=== PATIENT | female | born 1995 | race Caucasian/White ===

== ENCOUNTER → 2017-11-14 | Outpatient (CLI) | payer OTHER ==
[~2017-11-14] MED LIST: LEVO75TA5 PO
== END | disposition home or self-care (01) ==
LOC: C.PAPS 10:03
PROVIDERS: ATTEND Obstetrics & Gynecology
DX: Z01.419 Encounter for gynecological examination (general) (routine) without abnormal findings (principal)

== ENCOUNTER 2020-02-08 03:53 | Inpatient (IN) ==
[2020-02-08] MEDS ORDERED: OXYTOCIN 30 UNITS/500 ML BAG IV PRN ×2 (04:40→04:41)
[2020-02-08] MEDS ORDERED: LACTATED RINGER'S 1,000 ML IV PRN (04:40)
[2020-02-08] MEDS ORDERED: IBUPROFEN 600 MG TAB PO PRN (04:41)
[2020-02-08] MEDS ORDERED: SUPERCREAM 0.870% 15 GM JAR EXT PRN (04:41)
[2020-02-08] MEDS ORDERED: HYDROCORTISONE ACETATE 25 MG SUPP PR PRN (04:41)
[2020-02-08] MEDS ORDERED: ACETAMINOPHEN 325 MG TAB PO PRN (04:41)
[2020-02-08] MEDS ORDERED: DIPHTHERIA/TETANUS/PERTUSSIS 0.5 ML SYR/VIAL IM ONE (04:41)
[2020-02-08] MEDS ORDERED: OXYCODONE/ACETAMINOPHEN 5mg/325mg TAB PO PRN (04:41)
[2020-02-08] MEDS ORDERED: BENZOCAINE 20% AER SPR 82.5 GM CAN EXT PRN (04:41)
[2020-02-08] MEDS ORDERED: bisacodyL 10 MG SUPP PR PRN (04:41)
[2020-02-08 05:00] LABS: Hematocrit (blood only) 38.1 % (37-47); Hemoglobin 12.6 g/dL (12.0-16.0); Mean Corpuscular Hemoglobin 29.5 pg (25-34); Mean Corpuscular Volume 89.2 fL (80-100); Mean Platelet Volume 10.6 fL (7.4-10.4); Platelet Count 186 K/uL (130-400); RDW Coefficient of Variation 14.3 % (11.5-14.5); RDW Standard Deviation 46.5 fL (36.4-46.3); Red Blood Count 4.27 M/uL (4.2-5.4); White Blood Count 11.99 K/uL (4.8-10.8)
[2020-02-08 05:01] LABS: Mean Corpuscular Hgb Conc 33.1 g/dL (32-36)
[2020-02-08] MEDS: LEVOTHYROXINE SODIUM 100 MCG TABLET PO SCH (06:51)
--- NOTE | 2020-02-08 07:45 | Delivery Summary ---
DATE OF OPERATION: 02/08/2020 The patient is a 24-year-old 3, para 1-0-1-1 white female who presented at 40+ weeks in active labor. She arrived at 9 cm dilated with bulging membranes. Membranes were ruptured for clear fluid. After 2 contractions, she was fully dilated and had the urge to push. She pushed effectively over intact perineum for a viable male . After the head was delivered, the rest of the infant delivered easily and was placed on the mother's abdomen for further attention and drying. Cord was clamped and cut after approximately 20 seconds as the infant was not having strong respiratory effort and was placed on the baby bed. At this point, the baby began to have vigorous crying and was moving all 4 limbs. The placenta was expressed intact with a 3-vessel cord. A second degree perineal laceration was repaired with 3-0 chromic in the usual fashion. Estimated blood loss was 250 mL. Mother and were doing well after delivery. bleeding was controlled with dilute Pitocin. I attest to the content of the Intraoperative Record and any orders documented therein. Any exception s are noted below.
[2020-02-08] MEDS: DOCUSATE SODIUM 100 MG CAP PO SCH ×2 (07:50→20:39)
[2020-02-08] MEDS: PRENATAL VITAMIN 1 TAB PO SCH (07:50)
[2020-02-08] MEDS: VALACYCLOVIR HCL 500 MG TABLET PO SCH (20:39)
[2020-02-09] MEDS: LEVOTHYROXINE SODIUM 100 MCG TABLET PO SCH (06:42)
--- NOTE | 2020-02-09 06:47 | Obstetrical Progress Note ---
Date of Service February 09, 2020 Assessment & Plan (1) state: Recovering well. . Circ planned today for baby per mom. Likely D/C tomorrow. On valtrex for active shingles as well and will Rx to go home with. Subjective Ambulation: ambulating normally Voiding: no voiding problems Passing Gas:: Yes Diet Tolerance:: regular diet Lochia:: Small Feeding Type:: breast feeding Physical Exam Constitutional WD/WN, vitals as above Eyes PERRL, conjunctivae normal, anicteric sclerae Neck normal visual inspection Respiratory normal respiratory effort and able to speak in complete sentences; no respiratory distress and no labored breathing Cardiovascular Rate/Rhythm: regular rate and regular rhythm Extremities: no edema Chest (Breasts) Chest: normal inspection of chest Gastrointestinal (Abdomen) Inspection/Auscultation: abdomen normal to inspection Soft, postgravid Skin + lesion (Occlusive tegaderm dressing on L ankle where shingles reportedly present) Psychiatric A+Ox3, euthymic affect Genitourinary OB Exam Abdomen: + fundal height Fundus: + firm and + relation to umbilicus (fundus just below umbilicus); not tender Results & Data Vital Signs (Past 12 Hours) Vital Signs Temp Pulse Resp BP 02/09/20 00:30 98.2 F 71 18 108/64 02/08/20 20:30 98.2 F 82 18 109/74
[2020-02-09 07:03] LABS: Hematocrit (blood only) 36.6 % (37-47); Mean Corpuscular Hemoglobin 29.4 pg (25-34); Mean Corpuscular Hgb Conc 32.8 g/dL (32-36); Mean Corpuscular Volume 89.7 fL (80-100); Mean Platelet Volume 11.1 fL (7.4-10.4); Platelet Count 211 K/uL (130-400); RDW Coefficient of Variation 14.4 % (11.5-14.5); RDW Standard Deviation 47.2 fL (36.4-46.3); Red Blood Count 4.08 M/uL (4.2-5.4); White Blood Count 11.02 K/uL (4.8-10.8)
[2020-02-09] MEDS: PRENATAL VITAMIN 1 TAB PO SCH (08:28)
[2020-02-09] MEDS: DOCUSATE SODIUM 100 MG CAP PO SCH (08:28)
[2020-02-09] MEDS: VALACYCLOVIR HCL 500 MG TABLET PO SCH (09:12)
[2020-02-09] MEDS ORDERED: bisacodyL 5 MG TABEC PO SCH (20:00)
== END 2020-02-09 15:00 | disposition home or self-care (01) | DRG 807 ==
LOC: OPB 03:53 → 4S1 03:55 → 4S2 07:12

== ENCOUNTER 2023-01-22 21:50 | Inpatient (IN) ==
[2023-01-22] MEDS ORDERED: OXYTOCIN 30 UNITS/500 ML BAG IV PRN ×2 (22:36→22:41)
[2023-01-22] MEDS ORDERED: PENICILLIN G POTASSIUM 6 MU in DEXTROSE 5% 250 ML IV STA (22:36)
[2023-01-22] MEDS ORDERED: LIDOCAINE 1% LOCAL 20 ML VIAL INFIL PRN (22:36)
[2023-01-22] MEDS ORDERED: BETAMETH SOD PHOS/ACETATE IA 6 MG/ML IM STA (22:36)
--- NOTE | 2023-01-22 22:45 | History & Physical Report ---
Date of Service January 22, 2023 Assessment & Plan (1) premature rupture of membranes: (2) Hypothyroid in , antepartum: (3) PFO (patent foramen ovale): Plan 27 yo at 35 4//7 wga presents w/ pprom VSS Fetus cat 1 PPROM confirmed on SSE. GBS obtained, will start pcn for gbs unknown and betamethasone for GA. Discussed risks vs benefits of betamethasone, likely will deliver before second. Will see if labor starts, plan pit if not. Discussed w/ peds and they are aware Epidural prn History of Present Illness Chief Complaint: LOF Primary Care Provider: NO PCP 27 yo at 35 4/7 wga presented w/ c/o LOF since 840pm. Was sitting on couch and felt a large gush of fluid. She stood up and it continued to leak. +FM, started having light cramping. Denies VB. No recent intercourse, no change in activity PNI: Hypothyroid PFO, echo wnl BMI >35 Past [employer] Hx: G1 2015 at 40 wks G2 2019 SAB G3 2020 at 40 wks G4 current q30d cycles notes HSV on her L ankle, denies ever having cold sores or genital HSV Allergies Allergy/AdvReac Type Severity Reaction Status Date / Time No Known Drug Allergies Allergy nka Verified 01/22/23 22:17 Home Medications Medication Instructions Recorded Confirmed Type vitamins-iron fumarate 27 1 tab PO DAILY 02/08/20 01/22/23 History mg iron-folic acid 0.8 mg tablet ( Vitamin) levothyroxine 125 mcg capsule 150 mcg PO DAILY 07/22/22 01/22/23 History Patient History Medical History screening for malformation using ultrasonics Anxiety Heart murmur History of chicken pox HSV (herpes simplex virus) infection On ankle per patient. Confirmed in 2010 Hypothyroidism Miscarriage No significant past medical history Shingles Surgical History No significant past surgical history S/P wisdom tooth extraction Family History Father Diabetes Mother Diabetes Hypertension Thyroid disease Tuberculosis Grandfather (Maternal) Thyroid disease Sister Thyroid disease Gestational diabetes Grandmother (Maternal) Breast cancer Denies family history of Ovarian cancer Colorectal cancer Social History Smoking Status: Never smoker Hx Alcohol Use: No Hx Substance Use: No Preferred Language: Luxembourgish Communication Ability: Effective Account Support Analyst Required: No Beliefs That Will Affect Care: None marital status: marital status details: Jailyn Grubbs (32) [phone] Current Living Situation: Spouse and Family Current Living Situation Comment: and kids current occupational status: employed current occupation: Finance coordinator @ [employer] Other Information That Helps Us Care for You: No Feels Safe at Home: Yes Safety Concerns: Feels Safe At This Time Assistive Devices: Glasses Physical Exam Constitutional: WD/WN, vitals as above Genitourinary: OB Exam Abdomen: + vertex (confirmed by bsus) Manual OB Exam: + cervical dilation (1.5), + cervical effacement 50%, + station -2 and + amniotic fluid (+nitrazine, pooling, ferning) clear OB Exam Monitor Tracing: + external FHT monitor used, + external uterine monitor used and + category I Results & Data Vital Signs (Past 12 Hours) Vital Signs Temp Pulse Resp BP 01/22/23 22:20 18 01/22/23 22:20 99.0 F 87 18 117/62 Laboratory Results OB Labs: Blood Type O Positive 07/28/22 Antibody Screen NEGATIVE 07/28/22 Hemoglobin 11.9 g/dl (12.0-16.0) L 12/01/22 Hematocrit 36.1 % (37.0-47.0) L 12/01/22 Mean Corpuscular Volume 87.0 fL (80.0-100.0)B 07/28/22 Platelet Count 311 K/uL (130-400) 07/28/22 Rubella IgG Antibody Immune (Immune) 07/28/22 Rapid Plasma Reagin Nonreactive (Nonreactive) 07/28/22 Hepatitis B Surface Antigen Neg (Neg) 06/28/19 Hepatitis B Surface Antigen. NON-REACTIVE (NON-REACTIVE) 07/28/22 Hepatitis C Antibody (EIA) NON-REACTIVE (NON-REACTIVE) 07/28/22 HIV (1&2) Ab and P24 Ag, 4th Gener Neg (Neg) 06/28/19 HIV (1&2) Ag and Ab Confirmation NON-REACTIVE (NON-REACTIVE) 07/28/22 Glucose 1 Hour 50 gm Load 129 mg/dl (70-130) 12/01/22 OB Optional Labs: Chlamydia trachomatis RNA Not Detected (NotDetected) 07/28/22 Neisseria gonorrhoeae RNA Not Detected (NotDetected) 07/28/22 Thyroid Stimulating Hormone (TSH) 1.353 uIu/ml (0.300-4.500) 12/15/22 Labs Reviewed: declines cf/sma/cfdna--mln declines quad--mln GBS unk Diagnostic Findings 12/30 EFW 88% ant plac Coding Level of Care Code None Diagnoses premature rupture of membranes O42.919 Hypothyroid in , antepartum O99.280; E03.9 PFO (patent foramen ovale) Q21.12
[2023-01-22 23:22] LABS: Hematocrit (blood only) 36.2 % (37.0-47.0); Hemoglobin 12.4 g/dl (12.0-16.0); Mean Corpuscular Hemoglobin 29.3 pg (25.0-34.0); Mean Corpuscular Hgb Conc 34.3 g/dL (32.0-36.0); Mean Corpuscular Volume 85.6 fL (80.0-100.0); Mean Platelet Volume 10.5 fL (9.4-12.4); Platelet Count 293 K/uL (130-400); RDW Coefficient of Variation 13.5 % (11.5-14.5); Red Blood Count 4.23 M/uL (4.20-5.40); White Blood Count 8.59 K/ul (4.8-10.8)
[2023-01-23] MEDS ORDERED: PENICILLIN G POTASSIUM 3 MU in DEXTROSE 5% 100 ML IV PRN (01:36)
[2023-01-23] MEDS: LACTATED RINGER'S 1,000 ML IV PRN ×2 (01:51→07:00)
[2023-01-23] MEDS ORDERED: ePHEDrine sulfate 50 MG/ML AMP ONE (06:19)
[2023-01-23] MEDS ORDERED: fentaNYL citrate PF 100 MCG/2 ML VIAL ONE (06:19)
[2023-01-23] MEDS ORDERED: fentaNYL 2MCG/ML ROPIVACAINE 1.25MG/ML 100 ML BAG EPI ONE (06:20)
[2023-01-23] MEDS ORDERED: LIDOCAINE 2%/EPINEPHRINE 1:200,000 20 ML PF ONE (06:20)
[2023-01-23] MEDS ORDERED: SODIUM CHLORIDE 0.9% PF INJ 10 ML VIAL ONE (06:20)
[2023-01-23] MEDS ORDERED: BUPIVACAINE 0.25% PF 30 ML VIAL ONE (06:20)
[2023-01-23] MEDS ORDERED: NALOXONE HCL 1 MG in SODIUM CHLORIDE 0.9% 1000ML 1,000 ML IV PRN (06:31)
[2023-01-23] MEDS ORDERED: ONDANSETRON INJ 2 MG/ML 2 ML VIAL IV PRN (06:31)
[2023-01-23] MEDS ORDERED: NALBUPHINE HCL INJ 10 MG/ML AMP IV PRN (06:31)
[2023-01-23] MEDS ORDERED: fentaNYL 2MCG/ML ROPIVACAINE 1.25MG/ML 100 ML BAG EPI PRN (06:31)
[2023-01-23] MEDS ORDERED: NALOXONE HCL 0.4 MG/1 ML VIAL/CARP IV PRN (06:31)
[2023-01-23] MEDS ORDERED: diphenhydrAMINE 50 MG/ML VIAL IV PRN (06:31)
[2023-01-23] MEDS ORDERED: ePHEDrine sulfate 50 MG/ML AMP IV PRN (06:31)
--- NOTE | 2023-01-23 06:33 | Anesthesiology Consultation ---
Date of Service January 23, 2023 Assessment & Plan ASA ASA2 Proposed Anesthesia Anesthesia Type: Labor Epidural Risk / Benefits Reviewed With: PT / POA / Parent / Guardian, Accepts Plan and Informed Consent Obtained History Height/Weight Height: 5 ft 6 in Weight: 115.666 kg Allergies Allergy/AdvReac Type Severity Reaction Status Date / Time No Known Drug Allergies Allergy nka Verified 01/22/23 22:17 Medications Home Medications Medication Instructions Recorded Confirmed Last Taken vitamins-iron fumarate 27 1 tab PO DAILY 02/08/20 01/22/23 01/22/23 mg iron-folic acid 0.8 mg tablet ( Vitamin) levothyroxine 125 mcg capsule 150 mcg PO DAILY 07/22/22 01/22/23 01/22/23 Active Medications Generic Name Dose Route Start Last Admin Trade Name Freq PRN Reason Stop Dose Admin Penicillin G Potassium 3 mu/ 106 mls @ 100 mls/hr 01/23/23 01:36 01/23/23 04:24 Dextrose IV 02/02/23 01:35 Infused Q4H PRN Infusion GBS(+) Until Delivery Lactated Ringer's 1,000 mls @ 125 mls/hr 01/22/23 22:36 01/23/23 07:00 Lr IV 01/24/23 22:35 999 mls/hr .Q8H PRN Administration L&D Protocol Protocol Oxytocin 30 units in 500 mls @ 10 mls/hr 01/22/23 22:41 01/23/23 06:07 Pitocin IV 01/24/23 22:40 0.6 units/hr .Q24H PRN 10 mls/hr Labor Induction/Augmentation Titration Protocol 0.6 UNITS/HR Past Medical History Medical History screening for malformation using ultrasonics Anxiety Heart murmur History of chicken pox HSV (herpes simplex virus) infection On ankle per patient. Confirmed in 2010 Hypothyroidism Miscarriage No significant past medical history Shingles Exercise / Class Metabolic Activity II 4-5 Yardwork/Stairs/Walk up hill Past Family History Family History Father Diabetes Mother Diabetes Hypertension Thyroid disease Tuberculosis Grandfather (Maternal) Thyroid disease Sister Thyroid disease Gestational diabetes Grandmother (Maternal) Breast cancer Denies family history of Ovarian cancer Colorectal cancer Past Surgical History Surgical History No significant past surgical history S/P wisdom tooth extraction Past Anesthesia History No Hx of Anesthesia Complications and No Family Hx of Anesthesia Complications History of PONV No Hx of PONV and No Hx of Motion Sickness Social History Smoking Status: Never smoker Hx Alcohol Use: No Hx Substance Use: No substance use type: does not use Review of Systems denies fever/cough/ colds/ chest pain/ SOB/ IRWIN denies IRWIN Physical Exam Vital Signs Last Vital Signs Temp 36.7 C 01/23/23 05:46 Pulse 83 01/23/23 07:22 Resp 20 01/23/23 06:11 BP 116/55 L 01/23/23 07:22 Pulse Ox 96 01/23/23 07:19 ENMT Mouth: no TMJ abnormality and no dentition abnormality Thyromental Distance: > or= 3.5 Finger Breadths Mallampati Class: II Neck neck extension not limited Respiratory normal respiratory effort; no respiratory distress Auscultation: lungs clear to auscultation bilaterally Cardiovascular Rate/Rhythm: regular rate and regular rhythm Neurologic moves all extremities Psychiatric Orientation: alert and oriented x 3 Testing Laboratory Results 01/22/23 22:55 Blood Type O Positive 01/22/23 22:55 Antibody Screen NEGATIVE 01/22/23 22:55
--- NOTE | 2023-01-23 07:45 | Delivery Summary ---
Vaginal Delivery Summary Date of Service January 23, 2023 Vaginal Delivery Summary and 2nd Degree LAC PREOPERATIVE DIAGNOSIS: 1. Single intrauterine at 35 5/7 wga 2. premature rupture of membranes 3. Hypothyroid 4. Maternal PFO POSTOPERATIVE DIAGNOSIS: 1. Single intrauterine at 35 5/7 wga 2. premature rupture of membranes 3. Hypothyroid 4. Maternal PFO 5. Delivered PROCEDURE: 1. Normal spontaneous vaginal delivery. SURGEON: Britni Hernandez MD ANESTHESIA: Epidural. ESTIMATED BLOOD LOSS: 300 mL FLUIDS: Continuous LR. URINE OUTPUT: None. COMPLICATIONS: None. CONDITION: Stable. INDICATIONS: 27 yo at 35 5/7 wga presented last evening with c/o LOF and found to have PPROM. Given GA, was recommended for delivery. GBS was obtained and penicillin started for prophylaxis, betamethasone was initiated for lung maturity. Induction was begun with pitocin and titrated up. She received an epidural for pain control and progressed to complete and desired to push. FINDINGS: A viable male , weight pending with Apgars of 8 and 8 at 1 and 5 minutes respectively. SPECIMEN: Cord blood OPERATIVE REPORT: The patient progressed to 10 cm, 100% effaced and +2 station, pushed over intact perineum with anesthesia to deliver a viable male infant, weight and Apgars as above. Head of delivered in KINA position. No nuchal cord was present. Body and shoulders were delivered without difficulty. was delivered to maternal abdomen and nursing staff. Delayed cord clamping was performed for 60 seconds. Cord was clamped and cut. Cord blood was obtained. Placenta delivered spontaneously intact with 3-vessel cord. IV oxytocin and fundal massage were given for excellent hemostasis. Vagina, cervix, perineum, and placenta were inspected. A second degree laceration was noted and repaired using 3-0 vicryl. There was excellent hemostasis. Sponge and needle counts correct x2. No sponges were left behind. Mother and stable in immediate period. [facility] Vaginal Delivery Charge Vaginal Delivery Codes: 12965 global code for the antepartum, delivery, and post- Delivery Type Details: and 2nd Degree LAC
[2023-01-23] MEDS ORDERED: IBUPROFEN 600 MG TAB PO PRN (08:19)
[2023-01-23] MEDS ORDERED: OXYTOCIN 30 UNITS/500 ML BAG IV PRN (08:19)
[2023-01-23] MEDS ORDERED: bisacodyL 10 MG SUPP PR PRN (08:19)
[2023-01-23] MEDS ORDERED: HYDROCORTISONE ACETATE 25 MG SUPP PR PRN (08:19)
[2023-01-23] MEDS ORDERED: BENZOCAINE 20% AER SPR 82.5 GM CAN EXT PRN (08:19)
[2023-01-23] MEDS ORDERED: ACETAMINOPHEN 325 MG TAB PO PRN (08:19)
[2023-01-23] MEDS ORDERED: DIPHTHERIA/TETANUS/PERTUSSIS 0.5mL SYR/VIAL (Age 7+yrs) IM ONE (08:19)
--- NOTE | 2023-01-23 08:43 | Anesthesia Procedure Note ---
Date of Service January 23, 2023 Anesthesia Post Epidural Note Vital Signs Vital Signs: Temp Pulse Resp BP Pulse Ox 36.7 C 77 20 98/53 L 97 01/23/23 05:46 01/23/23 08:40 01/23/23 06:11 01/23/23 08:40 01/23/23 07:29 Pain Intensity Abdomen: Pain Intensity: 10 Notes Mental Status: alert / awake / arousable and participated in evaluation Nausea / Vomiting: adequately controlled Pain: adequately controlled Airway Patency, RR, SpO2: stable & adequate BP & HR: stable & adequate Hydration State: stable & adequate Neuraxial Anesthesia: was administered and sensory block is resolving Anesthetic Complications: no major complications apparent and Pt Satisfied with anesthetic care Epidural: Removed without complications and With tip intact
[2023-01-23] MEDS: LEVOTHYROXINE SODIUM 150 MCG TABLET PO SCH (08:53)
[2023-01-23] MEDS: DOCUSATE SODIUM 100 MG CAP PO SCH ×2 (17:22→21:03)
[2023-01-23] MEDS: FERROUS SULFATE 325 MG TAB PO SCH (17:22)
[2023-01-23] MEDS: PRENATAL VITAMIN 1 TAB PO SCH (17:22)
[2023-01-23] MEDS ORDERED: BETAMETH SOD PHOS/ACETATE IA 6 MG/ML IM SCH (22:45)
--- NOTE | 2023-01-24 06:26 | Obstetrical Progress Note ---
Date of Service January 24, 2023 Assessment & Plan (1) premature rupture of membranes: (2) Encounter for supervision of normal in multigravida, antepartum: (3) Obesity affecting , antepartum: (4) state: Plan Uzma is a 27 y/o who is PPD #1 following . -Meeting all milestones -Vital signs reviewed and WNL -Blood type/GBS negative/Rubella immune -Follow up in 6 weeks for visit -Continue routine care Admission and Anticipated Discharge Date Admission Date: January 22, 2023 Supervising Physician Co-Signing Physician Notes Resident Physician Supervision Note: I was present with Dr. Drew during the history and exam. I discussed the case with the resident and agree with the findings and plan as documented in the note. Any exceptions or clarifications are listed here: stable doing well. eating, voiding, ambulating, . abd soft ff 2 down nt, ext nt calves. ppd#1 s/p ptd, routine care. rh pos, ri. Documented By: Laureen Gupta MD, FACOG Subjective Uzma is a 27 y/o female who is PPD #1 following delivery at 35 4/7 weeks. She reports feeling well overall this morning. Notes some abdominal cramping but pain is well managed on analgesics. Notes some burning with urination due to her stitches. Tolerating meals overnight and able to ambulate some. Has some persistent lochia with some improvement this morning. Currently breast feeding and supplementing with formula. Review of Systems Constitutional: no fever, no chills and no sweats Respiratory: no cough, no dyspnea and no wheezing Cardiovascular: no chest pain, no palpitations and no calf pain Genitourinary: no dysuria Neurologic: no headache(s) Physical Exam Constitutional: WD/WN, vitals as above no acute distress Respiratory: no respiratory distress Auscultation: lungs clear to auscultation bilaterally; no rales, no rhonchi and no wheezes Cardiovascular: RRR, no murmur, no edema Extremities: no calf tenderness and no edema Negative Astrid's sign bilaterally. Gastrointestinal (Abdomen): Inspection/Auscultation: normal bowel sounds Genitourinary: Uterine fundus firm, palpable below the umbilicus. Results & Data Vital Signs (Past 12 Hours) Vital Signs Temp Pulse Resp BP BP Pulse Ox O2 Del Method 01/24/23 03:17 36.7 C 70 18 93/53 L 97 Room Air 01/23/23 22:57 36.7 C 72 20 108/62 96 Room Air 01/23/23 19:15 36.9 C 74 20 106/68 97 Room Air Resident Activity Tracking Resident Involvement: Resident Care Provided Care Provided: OB Delivery
[2023-01-24] MEDS: LEVOTHYROXINE SODIUM 150 MCG TABLET PO SCH (06:48)
[2023-01-24] MEDS: DOCUSATE SODIUM 100 MG CAP PO SCH (08:04)
[2023-01-24] MEDS: PRENATAL VITAMIN 1 TAB PO SCH (08:04)
[2023-01-24] MEDS: FERROUS SULFATE 325 MG TAB PO SCH (08:04)
--- NOTE | 2023-01-24 19:26 | Communication Note ---
Date of Service: January 24, 2023 Baby being shipped. Patient desires d/c. Instructions reviewed.
[2023-01-24] MEDS ORDERED: bisacodyL 5 MG TABEC PO SCH (20:00)
--- NOTE | 2023-01-29 09:16 | Coding Query ---
CODING QUERY To promote full compliance with coding requirements relating to patient care, provider participation is requested in all cases of e learning manager uncertainty. Please assist us with the question(s) below: Coding Question(s): Patient was noted to deliver at 35 5/7 wga. Please document any associated diagnoses such as term, , post term or other. Physician's Response(s): premature rupture of membranes Thank you Layla Pritchett Principal Diagnosis: "that condition established after study, to be chiefly responsible for occasioning the admission of the patient to the hospital for care." Co-Existing Principal Diagnosis: "when two or more diagnoses equally meet the criteria for principal diagnosis as determined by the circumstances of admission, diagnostic work up, and/or therapy provided, and the Alphabetic Index, Tabular List, or another coding guideline does not provide sequencing direction, any one of the diagnoses may be sequenced first." "When the physician has documented what appears to be a current diagnosis in the body of the record, but has not included the diagnosis in the final diagnostic statement, the physician should be asked whether the diagnosis should be added." (Source [facility]oding [facility] 2 QTR90. p3-4) ERMELINDA
== END 2023-01-24 21:45 | disposition home or self-care (01) | DRG 805 ==
LOC: OPB 21:50 → 4S1 21:52 → 4E2 01-23 10:15